=== PATIENT | female | born 1980 | race Hispanic/Latino ===

== ENCOUNTER 2022-12-02 01:53 | Emergency (ER) | payer OTHER, SELFPAY ==
[2022-12-02] MEDS ORDERED: Ibuprofen 200 MG TAB ONE (02:20)
== END 2022-12-02 02:36 | disposition home or self-care (01) ==
LOC: CSHERS 01:53
DX: M25.562 Pain in left knee (principal); M54.50 Low back pain, unspecified; W01.0XXA Fall on same level from slipping, tripping and stumbling without subsequent striking against object, initial encounter
CPT/HCPCS: 99283